=== PATIENT | male | born 1985 | race Caucasian/White ===

== ENCOUNTER 2020-04-23 15:16 | Outpatient (CLI) | payer BC ==
[~2020-04-23 15:16] MED LIST: CEPH500C PO
== END 2020-04-23 15:44 | disposition home or self-care (01) ==
LOC: SLEEP 15:16
PROVIDERS: ATTEND Nurse Practitioner
DX: G47.33 Obstructive sleep apnea (adult) (pediatric) (principal)
CPT/HCPCS: G0399